=== PATIENT | female | born 1980 | race Caucasian/White ===

== ENCOUNTER 2016-08-03 19:20 | Emergency (ER) | payer OTHER ==
[~2016-08-03 19:20] MED LIST: AMOXICILLIN PO; AZO STANDARD97.5 MG PO; BACTRIM DS TABL1 TA1 PO; BENZONATATE; DICLOFENAC PO; FLEXERIL10 MG; FLEXERIL10 MG PO; IBUPROFEN PO; NO MEDICATIONS; PAXIL; PHENERGAN25 MG PO; PREDNISONE10 MG PO; PRILOSEC40 MG PO; PYRIDIUM PO; ROBITUSSIN A-C S5 ML; RONDEC SYRUP PO; VOLTAREN50 MG PO; VOLTAREN75 MG PO
== END 2016-08-03 19:25 | disposition home or self-care (01) ==
LOC: SED 19:20
DX: L60.0 Ingrowing nail (principal); K21.9 Gastro-esophageal reflux disease without esophagitis; F32.9 Major depressive disorder, single episode, unspecified; F17.210 Nicotine dependence, cigarettes, uncomplicated; Z23 Encounter for immunization
CPT/HCPCS: 29515; 90471; 90715; 99283

== ENCOUNTER 2016-08-21 19:14 | Emergency (ER) | payer OTHER ==
--- NOTE | ~2016-08-21 | CR126 ---
[facility]. [facility] A Service of [facility] & [facility] RADIOLOGY TEXT RESULTS PATIENT: GIOVANI MORALES LOCATION: SED : 80 UNIT #: [id number] AGE: [address]: PUNEET BLACK PA-C SEX: F ORDER DR: [id number] [place] [id number] MR#: [id number] Acc #: [id number] NAME: GIOVANI MORALES. : 1980 SEX: F STUDY DATE/TIME: 08/21/2016 20:24 UNIT: SED ROOM: STUDY DESCRIPTION: CR Foot Complete Min 3 View Lt Attending Physician: Puneet Black Pa-C Ordering Physician: Puneet Black Pa-C Primary Care Physician: Jr Aragon M.D. MEDICAL IMAGING REPORT This report is preliminary unless electronic signature is present. EXAM Left foot 3 views HISTORY Pain and swelling this morning, injury left foot anteriorly. COMMENT 3 views of the left foot are reviewed. There is a possible nondisplaced fracture at the base of the fifth metatarsal. Please correlate clinically since this does not correspond to the site of tenderness indicated in the history. There is no radiopaque foreign body or dislocation. IMPRESSION Possible nondisplaced fracture base of the fifth metatarsal. Please correlate with site of tenderness clinically. Dictated by... Bria Zaragoza M.D. THIS IS AN ELECTRONICALLY VERIFIED REPORT Bria Zaragoza M.D. at 08/22/2016 3:40 PM MISSY/clyde TD: 08/22/2016 09:05 JOB #: [id number] MEDICAL IMAGING REPORT Page 1 of 1
[2016-08-21] MEDS ORDERED: RANITIDINE HCL300 M1 PO (19:40)
== END 2016-08-21 21:27 | disposition home or self-care (01) ==
LOC: SED 19:14
DX: S92.352A Displaced fracture of fifth metatarsal bone, left foot, initial encounter for closed fracture (principal); J45.909 Unspecified asthma, uncomplicated; K21.9 Gastro-esophageal reflux disease without esophagitis; F32.9 Major depressive disorder, single episode, unspecified; F17.200 Nicotine dependence, unspecified, uncomplicated; Z79.899 Other long term (current) drug therapy; W51.XXXA Accidental striking against or bumped into by another person, initial encounter; Y92.009 Unspecified place in unspecified non-institutional (private) residence as the place of occurrence of the external cause
CPT/HCPCS: 29405; 73630; 99283

== ENCOUNTER 2016-10-17 23:00 | Inpatient (IN) | payer OTHER ==
--- NOTE | ~2016-10-17 | HP ---
Unit #: [id number] #: [id number] Patient: GIOVANI MORALES [id number] [place] [address] [id number] MR#: [id number] NAME: GIOVANI MORALES ROOM: [facility] Age: 36 Sex: F Admission Date: 10/18/2016 : 1980 Attending Physician: Linus Lugo M.D. Admitting Physician: Linus Lugo M.D. Primary Care Physician: Jr Aragon M.D. HISTORY AND PHYSICAL NOTE Giovani is a 36 year old who was admitted and discharged within the first 24 hours. She was not seen for an history and physical. Dictated by... Cammie Mari P.A.-C. for Gio Vanegas/kaleb TD: 10/19/2016 04:58 JOB #: [id number] HISTORY AND PHYSICAL Page 1 of 1 X Cammie Mari HISTORY AND PHYSICAL
[~2016-10-17 23:00] MED LIST changes: +RANITIDINE HCL300 M1 PO
== END 2016-10-18 11:50 | DRG 951 ==
LOC: P1E 10-18 01:38
DX: Z53.21 Procedure and treatment not carried out due to patient leaving prior to being seen by health care provider (principal)
CPT/HCPCS: 86592